=== PATIENT | male | born 1945 | race Caucasian/White ===

== ENCOUNTER → 2020-11-10 | Outpatient (CLI) | payer OTHER, BC ==
[~2020-11-10] MED LIST: ATORVASTATIN CA20 MG PO; MULTI VITAMIN1 EACH PO; PROBIOTIC1 EAC7 PO; TURMERIC500 M2 PO
== END ==
LOC: LAB 09:34
PROVIDERS: ATTEND Student in an Organized Health Care Education/Training Program
DX: Z01.812 Encounter for preprocedural laboratory examination (principal); Z20.822 Contact with and (suspected) exposure to COVID-19

== ENCOUNTER 2020-11-12 07:00 | Day surgery (SDC) | payer OTHER, BC ==
[~2020-11-12] VITALS: Ht 167.6 cm; Wt 63.5 kg
--- NOTE | ~2020-11-12 | O ---
[facility] [place] [address] OPERATIVE REPORT Name: ELMA LARSON Room #: 150-3 [facility] M.R.#: [id number] Admission: 11/12/20 Attend Phys: Morgan Garcia MD Discharge: Date of : 41 Report #: [id number] THIS REPORT FOR: cc: Candice Pascal MD, Genelle J. MD Franey,Morgan Cabello MD ~ DOC #: [id number] cc: Candice Garcia MD DATE OF SERVICE: 11/12/[address] Morgan Garcia and Dr. Candice Pascal. PREOPERATIVE DIAGNOSES: Ventral epigastric incisional hernia and a right inguinal hernia. POSTOPERATIVE DIAGNOSES: Ventral epigastric incisional hernia and a right inguinal hernia. PROCEDURE: Right inguinal hernia repair with Prolene hernia system mesh and excision of a cord lipoma and repair of an epigastric ventral incisional hernia. SURGEON: Dr. Morgan Garcia. ANESTHESIA: Local IV sedation. DESCRIPTION OF PROCEDURE: The patient was brought to the operating room and placed on the operating table in the supine position. Sequential compression devices were in place for DVT prophylaxis. There was no indication for preoperative antibiotics. The patient underwent IV sedation and the abdomen was then prepped and draped in a sterile fashion. Four towels were placed around the epigastric hernia and was then infiltrated with 0.5% Marcaine, 1% Xylocaine with epinephrine. Transverse skin incision was performed over the hernia using a #15 scalpel blade. Hemostasis obtained using electrocautery. Dissection was carried down through the subcutaneous tissue. The hernia sac, which was identified, dissected free and reduced back into the abdomen. Fascial defect was then closed easily with no tension using interrupted [id number] #1 PDS sutures. Deep and superficial subcutaneous tissue was then reapproximated using simple interrupted 2-0 chromic sutures and the skin was then closed with a running 4-0 subcuticular Vicryl stitch. Attention was then turned to the right inguinal area. Four new towels were then placed around the right inguinal area and once again, skin and subcutaneous tissue of the right inguinal area was infiltrated with 0.5% Marcaine, 1% Xylocaine with epinephrine. Right inguinal skin incision was then performed using #10 scalpel blade. Hemostasis obtained using the electrocautery as well as clamps and 2-0 chromic ties. Dissection was [address] [address] OPERATIVE REPORT Name: ELMA LARSON Room #: 150-3 [facility]#: [id number] Admission: 11/12/20 Attend Phys: Morgan Garcia MD Discharge: Date of : 41 Report #: [id number] carried down through subcutaneous tissue. The external oblique fascia, which was then incised with a knife and opened with the Metzenbaum scissors. The cord was then carefully dissected free and held into place with a Olga drain. A large direct inguinal hernia sac was identified and dissected free from the cord. A cord lipoma was identified, dissected free, excised and sent to pathology. The direct inguinal hernia sac was then incised above the level of the fascia and the hernia sac was excised and the preperitoneal fat was reduced back through the fascia and hernia defect into the preperitoneal space. An extended Prolene hernia system mesh was then inserted through the floor and the underlay patch was then deployed in the preperitoneal space. The fascia was then closed over the preperitoneal fascia using a running 0 Prolene 2-layer Shouldice repair. The overlay patch was then deployed into the inguinal canal and it was secured to the pubic tubercle with the same running 0 Prolene suture. The mesh overlay patch was then secured superiorly and at the connector using simple interrupted 2-0 Vicryl sutures. The mesh was then split and wrapped around the cord, secured to the inguinal ligament with simple interrupted 2-0 Vicryl suture. The cord was then returned to the canal intact. The external oblique fascia was then closed using a running 2-0 Vicryl suture. Cheri's fascia was then reapproximated using 3 simple interrupted 2-0 chromic sutures and the skin then closed with a running 4-0 subcuticular Vicryl stitch. Both wounds were then dressed with Mastisol, half-inch Steri-Strips cut in half, Telfa, 4 x 4's gauze, sponge, and tape. The patient was then taken to the recovery room awake, alert and in good condition. Estimated blood loss was approximately 10 mL and the patient tolerated the procedure well. All sponge, lap and instrument counts were correct x2. Morgan Garcia MD TAF/KDA By: [id number] Morgan Garcia MD /nt
[2020-11-12 07:40] VITALS: BP 149/78
[2020-11-12] MEDS ORDERED: HYDROCODON-ACE1 EAC7 PO (08:29)
--- NOTE | 2020-11-17 18:06 | PATH ---
[facility] [address] [place] [address] PATHOLOGY RPT PROCEDURE Name: MARLO LARSON Room #: [facility] M.R.#: [id number] Admission: 11/12/20 Date of : 41 Discharge: 11/12/20 Report #: [id number] Path Case #: [id number] [facility] Accession Number: [id number] . 01 Material submitted: . inguinal area - RIGHT INGUINAL HERNIA SAC AND CORD LIPOMA. Modifiers: right . 01 Clinical history: . Right inguinal hernia and cord lipoma . 02 Diagnosis: Soft tissue, right inguinal hernia sac and cord lipoma, excision: - Mature adipose tissue consistent with benign lipoma. - Hernia sac. - There is no evidence of malignancy. (SCA:nery; 11/14/2020) MBR 11/14/2020 1305 Local . 02 Electronically signed: . Bo Gross DO, Pathologist NPI- [id number] . 01 Gross description: . The specimen is received in formalin, labeled "Marlo Larson", "right inguinal hernia sac and cord lipoma". Received is a single membranous, sheet like segment of flexible, pale welsh soft tissue and attached adipose tissue, measuring 5.2 x 4.8 x 0.4 cm. Also received within the container is an additional segment of bright yellow, lobulated adipose tissue measuring 3.2 cm. Sectioning reveals no distinct solid masses or nodules. [employer] sections are submitted in cassette A1. (SNA; 11/13/2020) DEVANTE/RASHEED 11/14/2020 1304 Local . 02 Pathologist provided ICD-10: K40.90 . 02 CPT . 427966 Specimen Comment: A courtesy copy of this report has been sent to [phone], [phone] Specimen Comment: [phone] Specimen Comment: Report sent to / DR RAYO Specimen Comment: A duplicate report has been generated due to demographic updates. Performed at: [address] [facility], [place] [id number] MD Rich Olivas MD Phone: [phone] [address] [address] PATHOLOGY RPT PROCEDURE Name: MARLO LARSON Room #: [facility] M.R.#: [id number] Admission: 11/12/20 Date of : 41 Discharge: 11/12/20 Report #: [id number] Path Case #: [id number] Performed at: [address], [place] [id number] MD Damián Redmond MD Phone: [phone]
== END 2020-11-12 13:00 | disposition home or self-care (01) ==
LOC: OR → TBA 07:01 → OR 10:43
PROVIDERS: ATTEND Surgery
DX: K43.2 Incisional hernia without obstruction or gangrene (principal); K40.90 Unilateral inguinal hernia, without obstruction or gangrene, not specified as recurrent; D17.6 Benign lipomatous neoplasm of spermatic cord; E78.5 Hyperlipidemia, unspecified; Z98.890 Other specified postprocedural states; Z79.899 Other long term (current) drug therapy; Z85.828 Personal history of other malignant neoplasm of skin; Z87.442 Personal history of urinary calculi; Z90.49 Acquired absence of other specified parts of digestive tract; Z88.8 Allergy status to other drugs, medicaments and biological substances
CPT/HCPCS: 50010; 50101; 50386; 50417; 56524; 56525; 56526; 56528; 58646; 62110; 62850; 70005

== ENCOUNTER 2020-11-26 07:35 | Day surgery (SDC) | payer OTHER, BC ==
[~2020-11-26] VITALS: Ht 167.6 cm; Wt 64.9 kg
--- NOTE | ~2020-11-26 | O ---
[place] [address] OPERATIVE REPORT Name: ELMA LARSON Room #: REG [facility] M..#: [id number] Admission: 11/26/20 Attend Phys: Morgan Garcia MD Discharge: Date of : 41 Report #: [id number] THIS REPORT FOR: cc: Candice Pascal MD, Genelle J. MD Franey,Morgan Cabello MD ~ DOC #: [id number] cc: Candice Garcia MD DATE OF SERVICE: 11/26/[address] Morgan Garcia, Dr. Candice Pascal. PREOPERATIVE DIAGNOSIS: Left inguinal hernia. POSTOPERATIVE DIAGNOSIS: Left inguinal hernia. PROCEDURE: Repair of a large sliding direct inguinal hernia with Prolene hernia system mesh. SURGEON: Morgan Garcia M.D. ANESTHESIA: Local, IV sedation. DESCRIPTION OF PROCEDURE: The patient was brought to the operating room and placed on the operating table in the supine position. Sequential compression devices were placed for DVT prophylaxis. There is no indication for preoperative antibiotics. The patient underwent IV sedation. Left inguinal area was prepped and draped in a sterile fashion. Skin and subcutaneous tissue were then infiltrated with 0.5% Marcaine, 1% Xylocaine with epinephrine. The left inguinal skin incision was then performed using #10 scalpel blade. Hemostasis obtained using the electrocautery as well as clamps and 2-0 chromic ties. Dissection was carried down through subcutaneous tissue to external oblique fascia, which was then incised with a knife and opened with the Metzenbaum scissors. The ilioinguinal nerve was identified, dissected free, injected with the local and preserved. Cord was then elevated and held in place with a [place] drain. Cremasteric muscle fibers were then split in the direction of fibers using clamp and electrocautery. There was no indirect inguinal hernia sac. The floor was inspected and there was a large sliding direct inguinal hernia defect. The hernia sac was then incised using the electrocautery and dissected free. The hernia was reduced back into the preperitoneal space and extended Prolene hernia system mesh was then inserted through the floor and deployed into the preperitoneal space. The floor was then closed over the underlay patch using a running 2-0 Prolene 2-layer Shouldice repair. The overlay patch was then deployed and secured to the pubic tubercle [address] [address] OPERATIVE REPORT Name: ELMA LARSON JOSE Room #: REG [facility]#: [id number] Admission: 11/26/20 Attend Phys: Morgan Garcia MD Discharge: Date of : 41 Report #: [id number] with the same running 2-0 Prolene suture. The mesh was then secured superiorly at the connector using simple interrupted 2-0 Vicryl sutures. The mesh was split and wrapped around the cord, secured to the inguinal ligament simple interrupted 2-0 Vicryl suture. Cord and ilioinguinal nerve were then returned to the canal intact. The external oblique fascia was then closed using a running 2-0 Vicryl suture. Cheri's fascia was then reapproximated using simple interrupted 2-0 chromic sutures and the skin was then closed with a running 4-0 subcuticular Vicryl stitch. The wound was then dressed with Mastisol, half inch Steri-Strips cut in half, Telfa, 4 x 4 gauze, sponge, and tape. The patient was then taken to the recovery room awake, alert, and in good condition. Estimated blood loss was approximately 10 mL. The patient tolerated the procedure well. All sponge, lap and instrument counts were correct x2. Morgan Garcia MD TAF/KDA By: [id number] Morgan Garcia MD /nt
[~2020-11-26 07:35] MED LIST changes: +HYDROCODON-ACE1 EAC7 PO
[2020-11-26 10:07] VITALS: BP 134/62
[2020-11-26 11:38] VITALS: BP 134/62
== END 2020-11-26 09:43 | disposition home or self-care (01) ==
LOC: OR 07:35
PROVIDERS: ATTEND Surgery
DX: K40.90 Unilateral inguinal hernia, without obstruction or gangrene, not specified as recurrent (principal); J45.909 Unspecified asthma, uncomplicated; Z98.890 Other specified postprocedural states; Z90.49 Acquired absence of other specified parts of digestive tract; Z85.828 Personal history of other malignant neoplasm of skin; Z87.442 Personal history of urinary calculi; Z20.822 Contact with and (suspected) exposure to COVID-19; Z88.0 Allergy status to penicillin
CPT/HCPCS: 50010; 50101; 50386; 50417; 56524; 56525; 56526; 56528; 58646; 62110; 62850; 70005